=== PATIENT | female | born 1985 | race African-American/Black ===

== ENCOUNTER 2019-05-12 11:09 | Emergency (ER) | payer OTHER ==
[~2019-05-12] VITALS: Ht 157.5 cm; Wt 83.9 kg
--- OUTSIDE RECORDS SUMMARY | 2019-05-12 11:12 | XMS REPORT ---
Author [facility] Address Unknown Phone Unavailable Care Team Providers Care Wool Sacker Name Role Phone Annita TORRES Unavailable Unavailable Problems This patient has no known problems. Allergies, Adverse Reactions, Alerts This patient has no known allergies or adverse reactions. Medications This patient has no known medications. Results Test Description Test Time Test Comments Text Results Atomic Results Result Comments CHEST 2 VIEWS 2018-10-05 17:26:00 [place] [id number] Patient Name: JENA BARDALES MR #: [id number] : 1985 Age/Sex: 33/F Req #: [id number] Adm Physician: Ordered by: JOSH BEJARANO YOKE PRESSER Report #: [id number] Location: ER Room/Bed: Procedure: [id number] DX/CHEST 2 VIEWS Exam Date: Exam Time: REPORT STATUS: Signed EXAM: XR CHEST 2 VIEWS DATE: 10/05/2018 4:30 PM INDICATION: Chest tightness COMPARISON: None FINDINGS: Lines and Tubes: None Heart and Mediastinum: No acute cardiomediastinal findings. Lungs and Pleura: No significant pleural effusion, pneumothorax, or focal consolidation. Bones and Soft Tissues: No acute findings. IMPRESSION: 1. No acute cardiopulmonary findings. Signed by: Dr. Arik Sheth MD on 10/05/2018 5:26 PM Dictated By: ARIK SHETH MD 25 Transcribed By: MAO on 10/05/181725 COPY TO: JOSH BEJARANO NP CT BRAIN WO 2018-10-05 17:24:00 [place] [id number] Patient Name: JENA BARDALES MR #: [id number] : 1985 Age/Sex: 33/F Req #: [id number] Adm Physician: Ordered by: JOSH BEJARANO YOKE PRESSER Report #: [id number] Location: ER Room/Bed: Procedure: [id number] CT/CT BRAIN WO Exam Date: 10/05/18 Exam Time: 1710 REPORT STATUS: Signed History: dizziness Comparison studies: None Techn ique: Axial images were obtained from the skull base to the vertex. Coronal and sagittal reconstructions obtained from the axial data. Dose modulation, iterative reconstruction, and/or weight based adjustment of the mA/kV was utilized to reduce the radiation dose to as low as reasonably achievable. Findings: Scalp/skull: A 5 mm hyperdense focus in the right frontal scalp is probably a calcified inclusion cyst. Otherwise, no abnormalities.. No fractures, blastic or lytic lesions. Extra-axial spaces: No masses. No fluid collections. Brain sulci: Appropriate for age. Ventricles: Normal in size and configuration. No hydrocephalus. Parenchyma: No abnormal densities. No masses, hemorrhage, acute or chronic cortical vascular insults. Sellar/suprasellar region: No abnormalities Craniocervical junction: Patent foramen magnum. No Chiari one malformation. IMPRESSION: No intracranial abnormalities Signed by: Dr. Ronak Beebe M.D. on 10/05/2018 6:48 PM Dictated By: RONAK NELSON MD, MD 47 Transcribed By: MAO on 10/05/181847 COPY TO: JOSH BEJARANO NP
--- NOTE | 2019-05-12 11:26 | NUR ---
BIENVENIDO MACK,TEACHER DRAMATICS EDUCATED PATIENT NO OB SERVICES AVIALABLE AT [facility], PATIENT HAS OPTION TO BE TRANSFERRED TO HOSPITAL WITH OB SERVICES OR LEAVE AMA AND DRIVE PERSONAL VEHICLE TO ANOTHER FACILY WITH AVIALABLE SERVICES. EDUCATED PATIENT ON THE RISKS OF LEAVING AGAINST MEDICAL ADVICE,VERBALIZED UNDERSTANDING. PATIENT STATES THAT SHE HER SPOUSE CAN DRIVE HER TO A FACILITY WITH OB SERVICES AND IS REQUESTING TO LEAVE AGAINST MEDICAL ADVICE.
== END 2019-05-12 11:26 | disposition home or self-care (01) ==
LOC: ER 11:09
DX: O47.00 False labor before 37 completed weeks of gestation, unspecified trimester (principal); R10.2 Pelvic and perineal pain
CPT/HCPCS: 99282

== ENCOUNTER → 2021-01-03 | Emergency (ER) | payer SELFPAY ==
[~2021-01-03] VITALS: Ht 157.5 cm; Wt 83.9 kg
[2021-01-03 15:14] VITALS: BP 134/52
== END ==
LOC: ER 14:16
DX: J02.9 Acute pharyngitis, unspecified (principal); R50.9 Fever, unspecified; H92.03 Otalgia, bilateral; I10 Essential (primary) hypertension
CPT/HCPCS: 99282

== ENCOUNTER 2021-07-08 20:40 | Emergency (ER) | payer SELFPAY ==
[2021-07-08 21:20] LABS: BASOPHILS % 0.5 % (0.0-1.0); EOSINOPHILS # (AUTO) 0.2 (0.0-0.4); EOSINOPHILS % 2.3 % (0.0-6.0); HEMATOCRIT 30.5 % (34.2-44.1); HEMOGLOBIN 8.2 g/dL (12.0-16.0); LYMPHOCYTES # (AUTO) 2.3 (1.0-3.2); LYMPHOCYTES % 29.4 % (18.0-39.1); MEAN CORPUSCULAR HEMOGLOBIN 18.1 pg (28-32); MEAN CORPUSCULAR HGB CONC 26.9 g/dL (31-35); MEAN CORPUSCULAR VOLUME 67.3 fL (81-99); MONOCYTES # (AUTO) 0.7 (0.2-0.8); MONOCYTES % 8.7 % (4.4-11.3); NEUTROPHILS # (AUTO) 4.6 (2.1-6.9); NEUTROPHILS % 58.8 % (38.7-80.0); PLATELET COUNT 428 x10e3/uL (140-360); RED BLOOD COUNT 4.53 x10e6/uL (3.6-5.1); RED CELL DISTRIBUTION WIDTH 17.4 % (11.7-14.4)
[2021-07-08 21:26] LABS: CLARITY,URINE CLEAR (CLEAR); COLOR,URINE YELLOW (YELLOW); KETONES,URINE NEGATIVE (NEGATIVE); LEUKOCYTE ESTERASE ,URINE NEGATIVE (NEGATIVE); NITRITE,URINE NEGATIVE (NEGATIVE); PROTEIN,URINE DIPSTICK NEGATIVE (NEGATIVE); URINE UROBILINOGEN 0.2 mg/dL (0.2 - 1)
[2021-07-08 21:36] LABS: ALBUMIN 3.6 g/dL (3.5-5.0); ALBUMIN/GLOBULIN RATIO 0.8 (0.8-2.0); ANION GAP 14.8 mmol/L (8-16); BACTERIA,URINE FEW /HPF; CALCIUM 8.8 mg/dL (8.4-10.2); CREATININE, SERUM 0.68 mg/dL (0.57-1.11); EPITHELIAL CELLS,URINE MODERATE /LPF; POTASSIUM 3.8 mmol/L (3.5-5.1); WBC,URINE (MAN) 0-5 /HPF (0-5)
== END 2021-07-08 22:40 | disposition home or self-care (01) ==
LOC: ER 20:52
DX: R42 Dizziness and giddiness (principal); H53.8 Other visual disturbances
CPT/HCPCS: 36415; 70450; 80053; 81001; 84484; 85025; 93005; 99284; U0002

== ENCOUNTER 2021-08-30 15:54 | Emergency (ER) | payer SELFPAY ==
[~2021-08-30] VITALS: Ht 157.5 cm; Wt 81.6 kg
[2021-08-30] MEDS: SODIUM CHLORIDE 0.9% 1000ML 1,000 ML IV SCH ×2 (16:45→17:22)
[2021-08-30 16:57] LABS: STREPTOCOCCUS GRP A ANTIGEN NEGATIVE (NEGATIVE)
[2021-08-30 17:09] LABS: INFLUENZAE A&B ANTIGEN (RAPID) NEGATIVE (NEGATIVE)
[2021-08-30 17:23] LABS: BASOPHILS % 0.3 % (0.0-1.0); EOSINOPHILS # (AUTO) 0.2 (0.0-0.4); EOSINOPHILS % 1.6 % (0.0-6.0); HEMATOCRIT 35.5 % (34.2-44.1); HEMOGLOBIN 9.8 g/dL (12.0-16.0); LYMPHOCYTES # (AUTO) 2.4 (1.0-3.2); LYMPHOCYTES % 25.6 % (18.0-39.1); MEAN CORPUSCULAR HEMOGLOBIN 19.8 pg (28-32); MEAN CORPUSCULAR HGB CONC 27.6 g/dL (31-35); MEAN CORPUSCULAR VOLUME 71.7 fL (81-99); MONOCYTES # (AUTO) 0.7 (0.2-0.8); MONOCYTES % 7.2 % (4.4-11.3); NEUTROPHILS # (AUTO) 5.9 (2.1-6.9); NEUTROPHILS % 64.9 % (38.7-80.0); PLATELET COUNT 407 x10e3/uL (140-360); RED BLOOD COUNT 4.95 x10e6/uL (3.6-5.1); RED CELL DISTRIBUTION WIDTH 21.1 % (11.7-14.4)
[2021-08-30] MEDS ORDERED: CASIRIVIMAB/IMDEVIMAB 10 ML in SODIUM CHLORIDE 0.9% 100 ML IV ONE (17:45)
[2021-08-30 17:46] LABS: ALANINE AMINOTRANSFERASE 13 IU/L (0-55); ALBUMIN 3.6 g/dL (3.5-5.0); ALBUMIN/GLOBULIN RATIO 0.8 (0.8-2.0); ALKALINE PHOSPHATASE 55 IU/L (40-150); ANION GAP 14.7 mmol/L (8-16); BLOOD UREA NITROGEN 10 mg/dL (7-26); BUN/CREATININE RATIO 13 (6-25); CARBON DIOXIDE 25 mmol/L (22-29); CHLORIDE 100 mmol/L (98-107); CREATINE KINASE 136 IU/L (29-168); CREATININE, SERUM 0.78 mg/dL (0.57-1.11); EST GLOMERULAR FILTRATION RATE 101 ML/MIN (60-); GLUCOSE 160 mg/dL (74-118); POTASSIUM 3.7 mmol/L (3.5-5.1); SODIUM 136 mmol/L (136-145)
[2021-08-30] MEDS ORDERED: ACETAMINOPHEN 325 MG TAB PO ONE (18:30)
== END 2021-08-30 20:29 | disposition home or self-care (01) ==
LOC: ER 16:12
DX: U07.1 COVID-19 (principal); R50.9 Fever, unspecified; R05.9 Cough, unspecified; R73.9 Hyperglycemia, unspecified; I10 Essential (primary) hypertension; F17.210 Nicotine dependence, cigarettes, uncomplicated
CPT/HCPCS: 36415; 71045; 80053; 82550; 82553; 82948; 83518; 83880; 84484; 85025; 87070; 87400; 93005; 99284; J7030; J7050; U0002

== ENCOUNTER 2021-11-28 13:34 | Emergency (ER) | payer SELFPAY ==
[~2021-11-28] VITALS: Ht 157.5 cm; Wt 81.6 kg
== END 2021-11-28 16:44 | disposition home or self-care (01) ==
LOC: ER 13:37
DX: R42 Dizziness and giddiness (principal); I10 Essential (primary) hypertension; R73.03 Prediabetes
CPT/HCPCS: 99282